=== PATIENT | female | born 1970 | race Caucasian/White ===

== ENCOUNTER 2016-09-01 10:00 | Observation (INO) | payer OTHER ==
[2016-08-28 20:39] LABS: BASOPHILS 0.5 %; BASOPHILS ABSOLUTE 0.04 10/3/uL (0.0-0.16); EOSINOPHILS 1.1 %; EOSINOPHILS ABSOLUTE 0.09 10/3/uL (0.0-0.53); HEMATOCRIT 42.1 % (36.0-48.0); HEMOGLOBIN 13.6 g/dL (12.0-16.0); IMMATURE GRANULOCYTES 0.1 %; IMMATURE GRANULOCYTES ABSOLUTE 0.01 10/3/uL (0.0-0.11); LYMPHOCYTES 26.3 %; LYMPHOCYTES ABSOLUTE 2.22 10/3/uL (0.67-4.30); MANUAL DIFF NO %; MEAN CORPUS HGB CONC 32.3 g/dL (32.0-36.0); MEAN CORPUSCULAR HEMOGLOB 27.4 pg (26.0-34.0); MEAN CORPUSCULAR VOLUME 84.9 fL (80-100); MONOCYTES 6.8 %; MONOCYTES ABSOLUTE 0.57 10/3/uL (0.21-1.20); NEUTROPHILS 65.2 %; PLATELET COUNT 440 10/3/uL (150-400); RBC DISTRIBUTION WIDTH 13.3 % (12.0-16.0); RED CELL COUNT 4.96 10/6/uL (4.0-5.6); WHITE BLOOD CELLS 8.4 10/3/uL (4.5-10.5)
[2016-08-28 21:00] LABS: A/G RATIO 1.1 (0.7-1.9); ALBUMIN 3.6 G/DL (3.5-5.0); ALKALINE PHOSPHATASE 77 U/L (45-117); BUN (BLOOD UREA NITROGEN) 11 MG/DL (6-23); CA 125 II 684.9 U/ML (< 35.0); CALCIUM, SERUM 9.1 MG/DL (8.5-10.4); CHLORIDE, SERUM 99 MMOL/L (96-112); CO2 (CARBON DIOXIDE) 31 MMOL/L (24-34); CREATININE 0.64 MG/DL (0.55-1.02); GFR AFRICAN AMERICAN 122 ML/MIN (>=60); GFR NON AFRICAN AMERICAN 106 ML/MIN (>=60); GLOBULIN 3.4 G/DL (2.5-4.1); GLUCOSE, SERUM 120 MG/DL (60-99); POTASSIUM, SERUM 3.3 MMOL/L (3.5-5.3); SGOT(AST) 23 U/L (5-40); SGPT(ALT) 26 U/L (5-65); SODIUM, SERUM 141 MMOL/L (135-148); TOTAL BILIRUBIN 0.3 MG/DL (0-1.2)
[2016-08-28 21:02] LABS: CEA 0.3 NG/ML
--- NOTE | ~2016-09-01 | CN ---
Consultation Report [address] [place]. [address] NAME: CORA GARZA : 66 STATUS : REG [facility] [place] PAT#: [id number] AGE: 46 ADM/REG DATE : 09/01/16 MR#: [id number] REPORT SERV DATE: 09/01/16 DICTATED BY: KEAGAN TRENT DATE: 09/01/16 REPORT STATUS : Draft TRANSCRIBED BY: MODDarlin DATE: 09/01/16 CARDIOLOGY CONSULTATION DATE OF CONSULTATION: 09/01/2016 REASON FOR CONSULTATION: Tachycardia. HISTORY OF PRESENT ILLNESS: Ms Garza is a 46-year-old female, who is in preop holding for a planned hysterectomy and bilateral salpingo-oophorectomy with an elevated CA-125, who developed tachycardia. After being informed of a possible cancer diagnosis, she became very anxious and had an anxiety attack. In this setting, she received anxiolysis; however, despite this her heart rate remained elevated at 160 to 170 beats per minute. An EKG was obtained that confirmed a regular narrow complex tachycardia. She was given IV labetalol and her heart rate improved to 100 to 110 beats per minute. Question is for possible an arrhythmia. Ms Garza was previously very active and has been exercising on an elliptical machine several days per week. She has no symptoms of exertional angina or shortness of breath. She has never had palpitations or syncope. She denies orthopnea, and edema. Preop testing included an ECG which was normal and a chest x-ray which was also normal. REVIEW OF SYSTEMS: Pertinent positives and negatives are as outlined above, all other are negative. PAST MEDICAL HISTORY: 1. Family history of ischemic heart disease. 2. Elevated CA-125. CURRENT MEDICATIONS: 1. Chlorthalidone 25 mg daily. 2. Vitamin D supplementation. 3. Norethindrone 0.35 mg daily. 4. Omeprazole 20 mg daily. ALLERGIES: NO KNOWN DRUG ALLERGIES. SOCIAL HISTORY: She does not use tobacco products, consume alcohol, or illegal drugs. FAMILY HISTORY: Significant for CAD, and the mother who had an KS in her 70s with a history of diabetes and tobacco use. PHYSICAL EXAMINATION: VITALS: Temp is afebrile, Pulse 100, Respirations 16, BP 110/70. MENTAL STATUS: Awake, alert, and oriented x3. Consultation Report [address] [place]. [address] NAME: CORA GARZA : 66 STATUS : REG [facility] [place] PAT#: [id number] AGE: 46 ADM/REG DATE : 09/01/16 MR#: [id number] REPORT SERV DATE: 09/01/16 DICTATED BY: KEAGAN TRENT DATE: 09/01/16 REPORT STATUS : Draft TRANSCRIBED BY: MODL DATE: 09/01/16 PSYCH: Euthymic, normal affect. GENERAL: Well appearing and in no distress. HEENT: Sclerae anicteric, mucous membranes moist and without lesions. NECK: No jugular venous distention. No hepatojugular reflux, carotid upstrokes 2+ and symmetric, there are no carotid or subclavian bruit. LUNGS: Clear to auscultation without wheezes, crackles, or rales. CARDIOVASCULAR: Regular with normal S1 and S2, no murmurs, no S3 or S4, no parasternal lift, PMI is nondisplaced and nonsustained. ABDOMEN: Soft and nontender. Bowel sounds positive and normoactive. No hepatomegaly, no masses, no abdominal bruit. PULSES: Radial and dorsalis pedis pulses 2+ and symmetric. EXTREMITIES: Warm and without edema. SKIN: No clubbing or cyanosis, no rashes or lesions. ACCESSORY DATA: ECG obtained during tachycardia shows sinus tachycardia rate of 160 beats per minute. There were nondiagnostic lateral ST changes. TN-interval is exactly the same as that of her pre and post ECG. Post ECG shows normal sinus rhythm with poor R-wave progression at a rate of 106 beats per minute. IMPRESSION: 1. Sinus tachycardia. 2. Anxiety/panic attack. 3. Preop cardiovascular. 4. Elevated CA-125. PLAN: Ms Garza is resting comfortably and had a normal preop exam. She is active with no anginal symptoms. Her ECG appears most consistent with sinus tachycardia in the setting of panic attack with a TN-interval that is similar amongst pre and post ECGs. I recommended starting some low-dose atenolol 25 mg q.h.s. She has a CT of the chest that has already been ordered and is pending. We will check an echocardiogram for additional evaluation. If these are all unremarkable, she has otherwise been adequately risk assessed and medically optimized for an intermediate risk surgery in an intermediate risk patient who has no personal risk factors for cardiovascular disease. Please call with questions. BEV/HOMER Keagan Trent M.D. / [id number] CC: Gold Roach M.D. Consultation Report [address] [address] NAME: CORA GARZA : 66 STATUS : REG [facility] [place] PAT#: [id number] AGE: 46 ADM/REG DATE : 09/01/16 MR#: [id number] REPORT SERV DATE: 09/01/16 DICTATED BY: KEAGAN TRENT DATE: 09/01/16 REPORT STATUS : Draft TRANSCRIBED BY: MODL DATE: 09/01/16 SMITA GERARDO
[~2016-09-01 10:00] MED LIST: ERRIN0.35 MG PO; HYGROTON 25 MG25 MG PO; PRILO PO; VITAMIN D1000 UNI1 PO
[2016-09-02] MEDS ORDERED: ATEN25 PO (12:41)
== END 2016-09-02 13:05 | disposition home or self-care (01) ==
LOC: SDC 10:00 → 4EA 16:21
PROVIDERS: Obstetrics & Gynecology Gynecologic Oncology
DX: R19.00 Intra-abdominal and pelvic swelling, mass and lump, unspecified site (principal); R00.0 Tachycardia, unspecified; F41.9 Anxiety disorder, unspecified; Z53.09 Procedure and treatment not carried out because of other contraindication
CPT/HCPCS: 36415; 71020; 71275; 80053; 82378; 84703; 85025; 86304; 86850; 86900; 86901; 93005; 96372; A9270-GY; C8929; G0378; J0694; J2250; J3010; Q9957

== ENCOUNTER 2016-09-13 05:23 | Observation (INO) | payer OTHER ==
--- NOTE | ~2016-09-13 | OP ---
Record Of Operation [facility] [address] [place]. [address] NAME: CORA NUR : 66 STATUS : DIS [facility] PAT#: [id number] AGE: 46 ADM/REG DATE : 09/13/16 MR#: [id number] REPORT SERV DATE: 09/14/16 DICTATED BY: GOLD WHEAT DATE: 09/14/16 REPORT STATUS : Draft TRANSCRIBED BY: MODDarlin DATE: 09/14/16 DATE OF PROCEDURE: 09/13/2016 PREOPERATIVE DIAGNOSIS: Adenocarcinoma. 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 PROCEDURES: 1. Laparoscopic hysterectomy with bilateral salpingo-oophorectomy for specimen greater than 250 g, CPT code 43960. 2. Laparoscopic hysterectomy with bilateral salpingo-oophorectomy via the da Eusebio laparoscopic robotic instrument, CPT code 99409. 3. Pelvic lymph node dissection, CPT Code 23591 with omental biopsy. UROLOGY NURSE: Flory Stockton. ESTIMATED BLOOD LOSS: 100 mL. FLUIDS: 2 L of crystalloid. COMPLICATIONS: None. ANESTHESIA: General endotracheal. FINDINGS AND INDICATIONS: This is a 46-year-old, who initially presented with a 9 cm pelvic mass and ascites. Her CA-125 was greater than 600. She was scheduled for surgery last week and was noted to be in SVT. She has been seen by Cardiology and placed on a beta michael. Her echocardiogram was normal and she had a negative evaluation for PE. She is now being brought to the operating room for laparoscopic possible exploratory laparotomy for ovarian cancer surgery. She has previously had a paracentesis for symptomatic relief of gross ascites revealing an adenocarcinoma. Intraoperatively, she was found to have bilateral ovarian masses with evidence of tumor outside of the ovary. The ovaries were not adherent to any structures in the pelvis and essentially just lifted out of the pelvis. They were easily placed into EndoCatch bags and ultimately delivered through the vagina intact. There was evidence of small volume disease on some of the peritoneal surfaces measuring between 1 and 3 mm. These visible areas were removed and sent to Pathology. There was also some disease in the posterior cul-de-sac. There was no gross evidence of disease on the either hemidiaphragm or the omentum. An omental biopsy was performed and at the completion of this procedure, she was considered optimally cytoreduced. Postprocedure, a cystoscopy was performed with excellent bilateral ureteral jets. No evidence of bladder defect. Prior to the induction of anesthesia, she was treated with Lovenox for DVT prophylaxis as well as antibiotics. PROCEDURE IN DETAIL: The patient was taken to the operating room, and she was placed in supine position for administration of general anesthesia. She was then placed in dorsal Record Of Operation [address] [address] NAME: CORA NUR : 66 STATUS : DIS [facility] PAT#: [id number] AGE: 46 ADM/REG DATE : 09/13/16 MR#: [id number] REPORT SERV DATE: 09/14/16 DICTATED BY: GOLD WHEAT DATE: 09/14/16 REPORT STATUS : Draft TRANSCRIBED BY: HOMER DATE: 09/14/16 lithotomy position and prepped and draped in usual sterile fashion. A ALLEGRA uterine manipulator was placed through the uterine cervix and out the fundus, and a IRIS ring was sutured to the patient's cervix. Our attention was then turned towards the anterior abdominal wall, where incision was made approximately 25 cm above the pubic symphysis and taken down to the underlying layer of fascia. The fascia was grasped with two sutures of 0 Vicryl, tented up, and entered sharply. The peritoneum was then tented up and entered sharply, and a laparoscopic trocar was placed under direct visualization. The abdominal cavity was then insufflated. Two additional 8 mm trocars were placed, one additional 12 mm trocar was placed. The patient was then docked with a laparoscopic robotic instrument and the remainder of the procedure was performed with the da Eusebio. The above findings are noted. The retroperitoneal spaces were opened via the round ligaments, which were grasped with bipolar cautery cauterized and transected bilaterally. The gonadal vessels were isolated. Hemoclips were placed to ensure long-term hemostasis. They were then coagulated and transected bilaterally. The uterine arteries were also identified at their origin and hemoclips were placed to ensure long-term hemostasis. The utero-ovarian ligaments were also isolated, grasped with bipolar cautery, cauterized and transected. Both ovaries were removed from the uterus and placed into EndoCatch bags. There was evidence of small volume disease as stated above on the left and right pericolic gutters. These areas were excised in total. Anteriorly, a bladder flap was created and then taken down to a level well below the cervix. The uterine arteries were then skeletonized at the level of the cervix, grasped with bipolar cautery, cauterized, and transected bilaterally. In the posterior cul-de-sac, there was also tumor noted with a small amount of tumor on the rectosigmoid colon as well. These areas were also excised in total. The uterosacral cardinal complexes were then taken down with unipolar cautery and a circumferential incision was made around the cervix and vagina, and the uterus and cervix was delivered through the vagina as were both ovaries, which were again placed into EndoCatch bags. The vaginal cuff was then closed with a running stitch of #1 PDS V-Loc. Prior to closing the vaginal cuff, a portion of the omentum was also removed, placed into an EndoCatch bag and delivered through the vagina. The omentum was removed with combination of bipolar and unipolar cautery. Excellent hemostasis was assured. Once the vaginal cuff was closed by pelvic lymph node dissection was performed and the lymphatic tissue was removed via an EndoCatch bag through the trocar sites. The lymph node dissection was performed within the boundaries of the circumflex iliac vein anteriorly, posteriorly the obturator nerve, laterally the genitofemoral nerve, and medially to the superior vesical artery. There was some enlarged lymph nodes noted. The lymphatic tissue within these boundaries was removed and sent to Pathology and labeled appropriately. All the structures were clearly identified and spared. The dissection was carried out to the base of the aorta bilaterally. Once the dissection was complete, the pelvis was irrigated with copious amounts of warm water. A JENNIFER drain was placed at the vaginal cuff, which was brought through one of the trocar sites. The laparoscopic instruments were removed. The gas expelled from the abdomen. The initial incision was closed with 0 Vicryl at the fascia. The remainder of the incisions were closed with 4-0 Vicryl at the skin and Dermabond was placed. Postprocedure, a cystoscopy was performed with excellent bilateral ureteral jets. No evidence of bladder defect. At the completion of the procedure, the anesthesia was reversed. The patient was taken to the recovery room in stable condition. Record Of Operation [facility] [address] [facility] [place]. [address] NAME: CORA NUR : 66 STATUS : DIS [facility] PAT#: [id number] AGE: 46 ADM/REG DATE : 09/13/16 MR#: [id number] REPORT SERV DATE: 09/14/16 DICTATED BY: GOLD WHEAT DATE: 09/14/16 REPORT STATUS : Draft TRANSCRIBED BY: MODL DATE: 09/14/16 SD/MODL Gold Wheat M.D. / [id number] CC: Paulina Ho KRISTIN
[~2016-09-13 05:23] MED LIST changes: +ATEN25 PO
[2016-09-14 05:06] LABS: BASOPHILS 0.1 %; BASOPHILS ABSOLUTE 0.01 10/3/uL (0.0-0.16); EOSINOPHILS 0 %; HEMATOCRIT 37.2 % (36.0-48.0); HEMOGLOBIN 12.3 g/dL (12.0-16.0); IMMATURE GRANULOCYTES 0.2 %; IMMATURE GRANULOCYTES ABSOLUTE 0.02 10/3/uL (0.0-0.11); LYMPHOCYTES 8.1 %; LYMPHOCYTES ABSOLUTE 1.03 10/3/uL (0.67-4.30); MANUAL DIFF NO %; MEAN CORPUS HGB CONC 33.1 g/dL (32.0-36.0); MEAN CORPUSCULAR HEMOGLOB 27.2 pg (26.0-34.0); MEAN CORPUSCULAR VOLUME 82.1 fL (80-100); MEAN PLATELET VOLUME 9.2 fL (9.2-13.0); MONOCYTES 5.9 %; MONOCYTES ABSOLUTE 0.75 10/3/uL (0.21-1.20); NEUTROPHILS 85.7 %; NEUTROPHILS ABSOLUTE 10.95 10/3/uL (2.02-8.40); PLATELET COUNT 409 10/3/uL (150-400); RBC DISTRIBUTION WIDTH 13.4 % (12.0-16.0); RED CELL COUNT 4.53 10/6/uL (4.0-5.6); WHITE BLOOD CELLS 12.8 10/3/uL (4.5-10.5)
[2016-09-14 05:22] LABS: BUN (BLOOD UREA NITROGEN) 10 MG/DL (6-23); CALCIUM, SERUM 9.1 MG/DL (8.5-10.4); CHLORIDE, SERUM 103 MMOL/L (96-112); CREATININE 0.81 MG/DL (0.55-1.02); GFR AFRICAN AMERICAN 100 ML/MIN (>=60); GFR NON AFRICAN AMERICAN 86 ML/MIN (>=60); POTASSIUM, SERUM 3.2 MMOL/L (3.5-5.3); SODIUM, SERUM 138 MMOL/L (135-148)
[2016-09-14 05:33] LABS: CO2 (CARBON DIOXIDE) 26 MMOL/L (24-34); GLUCOSE, SERUM 151 MG/DL (60-99)
[2016-09-14] MEDS ORDERED: NORCO1 TA1 PO (09:50)
[2016-09-14] MEDS ORDERED: ZOFRAN8 PO (09:51)
== END 2016-09-14 12:34 | disposition home or self-care (01) ==
LOC: SDC 05:23 → 4EA 14:29
PROVIDERS: Obstetrics & Gynecology Gynecologic Oncology
PROC: 0UT24ZZ Resection of Bilateral Ovaries, Percutaneous Endoscopic Approach (ICD-10-PCS; 2016-09-13)
PROC: 0UT74ZZ Resection of Bilateral Fallopian Tubes, Percutaneous Endoscopic Approach (ICD-10-PCS; 2016-09-13)
PROC: 07TC4ZZ Resection of Pelvis Lymphatic, Percutaneous Endoscopic Approach (ICD-10-PCS; 2016-09-13)
PROC: 0UT94ZZ Resection of Uterus, Percutaneous Endoscopic Approach (ICD-10-PCS; principal; 2016-09-13 06:30)
PROC: 0UTC4ZZ Resection of Cervix, Percutaneous Endoscopic Approach (ICD-10-PCS; 2016-09-13 06:30)
DX: C56.1 Malignant neoplasm of right ovary (principal); C56.2 Malignant neoplasm of left ovary; K21.9 Gastro-esophageal reflux disease without esophagitis; I10 Essential (primary) hypertension; F41.9 Anxiety disorder, unspecified; Z87.442 Personal history of urinary calculi
CPT/HCPCS: 36415; 80048; 84703; 85025; 86850; 86900; 86901; 88112; 88305; 88307; 96374; 96376; A9270-GY; G0378; J0694; J1885; J2250; J2405; J2710; J2795; J3010; P9045